=== PATIENT | male | born 1950 | race Caucasian/White ===

== ENCOUNTER 2022-06-11 06:00 | Outpatient (RCR) | payer OTHER, SELFPAY | END 2022-06-22 23:59 | disposition home or self-care (01) | LOC: SPT 06:00 | PROVIDERS: Visit Provider Family Medicine | DX: M54.2 Cervicalgia (principal) | CPT/HCPCS: 97110; 97112; 97140; 97161; 97530 ==

== ENCOUNTER 2022-06-23 06:00 | Outpatient (RCR) | payer OTHER, SELFPAY | END 2022-07-23 23:59 | disposition home or self-care (01) | LOC: SPT 06:00 | PROVIDERS: Visit Provider Family Medicine | DX: M54.2 Cervicalgia (principal) | CPT/HCPCS: 97110; 97112; 97530 ==

== ENCOUNTER 2022-07-24 06:00 | Outpatient (RCR) | payer OTHER, SELFPAY | END 2022-08-20 23:59 | disposition home or self-care (01) | LOC: SPT 06:00 | PROVIDERS: Visit Provider Family Medicine | DX: M54.2 Cervicalgia (principal) | CPT/HCPCS: 97110; 97112; 97530 ==

== ENCOUNTER 2022-09-21 06:00 | Outpatient (RCR) | payer OTHER, SELFPAY | END 2022-10-20 23:59 | disposition home or self-care (01) | LOC: SPT 06:00 | PROVIDERS: Visit Provider Family Medicine | DX: M54.2 Cervicalgia (principal) | CPT/HCPCS: 97110; 97112; 97140 ==

== ENCOUNTER 2022-10-21 06:00 | Outpatient (RCR) | payer OTHER, SELFPAY | END 2022-11-20 23:59 | disposition home or self-care (01) | LOC: SPT 06:00 | PROVIDERS: Visit Provider Family Medicine | DX: M54.2 Cervicalgia (principal) | CPT/HCPCS: 97110; 97112; 97140; 97530 ==

== ENCOUNTER 2023-01-07 14:40 | Outpatient (RCR) | payer OTHER, SELFPAY | END 2023-01-20 23:59 | disposition home or self-care (01) | LOC: WPT 14:40 | PROVIDERS: Visit Provider Family Medicine | DX: G57.91 Unspecified mononeuropathy of right lower limb (principal) | CPT/HCPCS: 97110; 97140; 97161; 97530 ==

== ENCOUNTER 2023-01-21 06:00 | Outpatient (RCR) | payer OTHER, SELFPAY | END 2023-02-20 23:59 | disposition home or self-care (01) | LOC: WPT 06:00 | PROVIDERS: Visit Provider Family Medicine | DX: G57.91 Unspecified mononeuropathy of right lower limb (principal) | CPT/HCPCS: 97110; 97140; 97530 ==

== ENCOUNTER 2023-02-21 06:00 | Outpatient (RCR) | payer OTHER, SELFPAY | END 2023-03-22 23:59 | disposition home or self-care (01) | LOC: WPT 06:00 | PROVIDERS: Visit Provider Family Medicine | DX: G57.91 Unspecified mononeuropathy of right lower limb (principal) | CPT/HCPCS: 97110; 97116; 97530 ==

== ENCOUNTER → 2023-06-20 08:55 | Outpatient (BNVA) | payer OTHER, SELFPAY | PROVIDERS: PCP Family Medicine; Visit Provider Podiatrist Foot & Ankle Surgery | DX: M20.21 Hallux rigidus, right foot; B35.1 Tinea unguium; G62.9 Polyneuropathy, unspecified | CPT/HCPCS: 73630; 99203 ==

== ENCOUNTER → 2023-07-25 09:40 | Outpatient (BNVA) | payer OTHER, SELFPAY | PROVIDERS: PCP Family Medicine; Referring Provider Family Medicine; Visit Provider Podiatrist Foot & Ankle Surgery | DX: M79.672 Pain in left foot (principal); M20.21 Hallux rigidus, right foot; B35.1 Tinea unguium; G62.9 Polyneuropathy, unspecified; M72.2 Plantar fascial fibromatosis | CPT/HCPCS: 73630; 99213 ==

== ENCOUNTER 2024-01-15 06:00 | Outpatient (RCR) | payer OTHER, SELFPAY | END 2024-01-21 23:59 | disposition home or self-care (01) | LOC: WPT 06:00 | PROVIDERS: Visit Provider Family Medicine | DX: M54.2 Cervicalgia (principal) | CPT/HCPCS: 97110; 97112; 97140; 97161; 97530 ==

== ENCOUNTER 2024-01-22 06:00 | Outpatient (RCR) | payer OTHER, SELFPAY | END 2024-02-21 23:59 | disposition home or self-care (01) | LOC: WPT 06:00 | PROVIDERS: Visit Provider Family Medicine | DX: M54.2 Cervicalgia (principal) | CPT/HCPCS: 97110; 97112; 97140; 97530 ==

== ENCOUNTER 2024-02-22 06:00 | Outpatient (RCR) | payer OTHER, SELFPAY | END 2024-03-22 23:59 | disposition home or self-care (01) | LOC: WPT 06:00 | PROVIDERS: Visit Provider Family Medicine | DX: M54.2 Cervicalgia (principal) | CPT/HCPCS: 97110; 97112; 97140; 97530 ==

== ENCOUNTER → 2024-03-31 09:00 | Outpatient (BNVA) | payer OTHER, SELFPAY | PROVIDERS: Visit Provider Surgery | DX: R13.10 Dysphagia, unspecified (principal) | CPT/HCPCS: 99203 ==